=== PATIENT | female | born 1995 | race Caucasian/White ===

== ENCOUNTER 2019-01-23 11:01 | Day surgery (SDC) | payer OTHER ==
[~2019-01-23] VITALS: Ht 167.6 cm; Wt 58.6 kg
[2019-01-23] MEDS ORDERED: FentaNYL CITRATE-PF 100 MCG/2 ML VIAL IVP ONE (11:02)
[2019-01-23] MEDS ORDERED: MIDAZOLAM HCL 2 MG/2 ML VIAL IVP ONE (11:02)
[2019-01-23] MEDS ORDERED: DEXAMETHASONE SOD PHOS 4 MG/ML VIAL IVP ONE (11:02)
[2019-01-23] MEDS ORDERED: KETOROLAC TROMETHAMINE 60 MG/2 ML VIAL IM ONE (11:02)
[2019-01-23] MEDS ORDERED: PROPOFOL 1% 20 ML VIAL IVP ONE (11:02)
[2019-01-23] MEDS ORDERED: ONDANSETRON HCL 4 MG/2 ML VIAL IVP ONE (11:02)
[2019-01-23] MEDS ORDERED: RINGERS SOLUTION,LACTATED 1,000 ML IV ONE ×2 (11:19→11:58)
[2019-01-23] MEDS: RINGERS SOLUTION,LACTATED 1,000 ML IV ONE (11:55)
[2019-01-23] MEDS ORDERED: HYDROmorphone 2 MG/ML SYRINGE IVP PRN (12:15)
[2019-01-23] MEDS ORDERED: FentaNYL CITRATE-PF 100 MCG/2 ML VIAL IVP PRN (12:15)
[2019-01-23] MEDS ORDERED: MEPERIDINE-PF 25 MG/ML VIAL IVP PRN (12:15)
[2019-01-23] MEDS ORDERED: OXYGEN THERAPY IH SCH (20:00)
== END 2019-01-23 13:45 | disposition home or self-care (01) ==
LOC: SURGERY 11:01
PROVIDERS: ATTEND Obstetrics & Gynecology
DX: Z30.432 Encounter for removal of intrauterine contraceptive device (principal); N94.6 Dysmenorrhea, unspecified; Z72.89 Other problems related to lifestyle; Z98.890 Other specified postprocedural states
CPT/HCPCS: 58562; 84703; 88300; J1100; J1885; J2250; J2405; J2704; J3010; J7120